=== PATIENT | female | born 1950 | race Two or more races ===

== ENCOUNTER 2019-01-01 11:01 | Outpatient (CLI) | payer OTHER | END 2019-01-01 11:07 | disposition home or self-care (01) | LOC: MAMO-SONO 11:01 | DX: Z12.31 Encounter for screening mammogram for malignant neoplasm of breast (principal); Z00.00 Encounter for general adult medical examination without abnormal findings ==

== ENCOUNTER 2022-09-10 09:22 | Outpatient (CLI) | payer OTHER | END 2022-09-10 09:47 | disposition home or self-care (01) | LOC: SONOGRAMA 09:22 | PROVIDERS: ATTEND Internal Medicine Nephrology | DX: Z12.31 Encounter for screening mammogram for malignant neoplasm of breast (principal); N64.4 Mastodynia; E11.22 Type 2 diabetes mellitus with diabetic chronic kidney disease; N18.2 Chronic kidney disease, stage 2 (mild) ==